=== PATIENT | male | born 1950 | race American Indian/Alaskan Native ===

== ENCOUNTER 2022-04-18 10:19 | Emergency (ER) | payer MEDICARE ==
[2022-04-18 10:27] VITALS: BP 130/88
[2022-04-18] MEDS ORDERED: KETOROLAC 10 MG TAB PO ONE (15:58)
[2022-04-18] MEDS ORDERED: ONDANSETRON 4 MG ODT TAB PO ONE (15:58)
[2022-04-18] MEDS ORDERED: oxyCODONE /ACETAMINOPHEN 5-325MG TAB PO ONE (15:58)
--- NOTE | 2022-04-18 16:06 | Emergency Department Report ---
ED Lower Extremity HPI - General Chief Complaint: Extremity Injury, Lower Stated Complaint: RT LEG PAIN Time Seen by Provider: 04/18/22 15:57 Source: patient Mode of arrival: Stretcher Limitations: Physical Limitation - History of Present Illness Initial Comments: 71-year-old male history of CVA, high cholesterol hypertension presents to the emergency department with atraumatic right knee pain. Patient reports woke up yesterday experiencing pain and swelling in his right knee. He denies fall or injury, pain is worse when he tries to walk hence he has been using a cane to ambulate. Pain is worse with ambulating, bending extension of his leg, improves with rest. Patient has not taken any medications for pain. He denies any recent travel, he denies numbness tingling of the leg, no chest pain, no shortness of breath, no headache dizziness weakness or any other associated symptoms. Injury: Knee: Right Improves With: immobilization Worsens With: weight bearing, movement, palpation Associated Symptoms: swelling, unable to bear weight. denies: snap/pop sensation, numbness, tingling, ambulatory - Related Data Previous Rx's Medication Instructions Recorded Last Taken Type Lidocaine 1 each TP DAILY #12 patch 04/18/22 Unknown Rx traMADoL [Ultram 50 MG tab] 50 mg PO Q6HR PRN #12 tablet 04/18/22 Unknown Rx Allergies Allergy/AdvReac Type Severity Reaction Status Date / Time No Known Allergies Allergy Verified 04/18/22 10:26 ED Review of Systems ROS: Stated complaint: RT LEG PAIN Other details as noted in HPI Constitutional: denies: chills, fever ENT: denies: ear pain, throat pain Respiratory: denies: see HPI, cough, orthopnea, shortness of breath, wheezing Cardiovascular: denies: chest pain, palpitations, dyspnea on exertion Musculoskeletal: denies: back pain, joint swelling, arthralgia, myalgia Skin: denies: rash, lesions, change in color, pruritus Neurological: denies: headache, weakness, numbness ED Past Medical Hx - Past Medical History Previous Medical History?: Yes Hx Hypertension: Yes Hx CVA: Yes Hx Arthritis: Yes - Medications Home Medications: Home Medications Medication Instructions Recorded Confirmed Last Taken Type Lidocaine 1 each TP DAILY #12 patch 04/18/22 Unknown Rx traMADoL [Ultram 50 MG tab] 50 mg PO Q6HR PRN #12 tablet 04/18/22 Unknown Rx ED Physical Exam - General Limitations: Physical Limitation General appearance: alert, in no apparent distress - Head Head exam: Present: atraumatic - Eye Eye exam: Present: normal appearance Pupils: Present: normal accommodation - ENT ENT exam: Present: normal exam - Respiratory Respiratory exam: Present: normal lung sounds bilaterally. Absent: respiratory distress - Cardiovascular Cardiovascular Exam: Present: regular rate, normal heart sounds - GI/Abdominal GI/Abdominal exam: Present: soft. Absent: distended, tenderness - Extremities Exam Extremities exam: Present: tenderness, joint swelling. Absent: normal inspection, full ROM, normal capillary refill, pedal edema, calf tenderness - Back Exam Back exam: Present: normal inspection, full ROM. Absent: tenderness, CVA tenderness (R), CVA tenderness (L), muscle spasm, paraspinal tenderness - Neurological Exam Neurological exam: Present: alert, oriented X3 - Psychiatric Psychiatric exam: Present: normal affect, normal mood - Skin Skin exam: Present: warm, dry, intact, normal color ED Course Vital Signs 04/18/22 10:23 Temperature 97.6 F Pulse Rate 60 Respiratory 14 Rate Blood Pressure 130/88 [Left] O2 Sat by Pulse 98 Oximetry ED Lower Extremity MDM - Medical Decision Making 71-year-old male history of CVA hypertension presents to the emergency department with atraumatic right knee pain. Patient reports woke up yesterday experiencing pain and swelling in his right knee. He denies fall or injury, pain is worse when he tries to walk hence he has been using a cane to ambulate. Pain is worse with ambulating, bending extension of his leg, improves with rest. Patient has not taken any medications for pain. He denies any recent travel, he denies numbness tingling of the leg, no chest pain, no shortness of breath, no headache dizziness weakness or any other associated symptoms. No indication for DVT at this time, patient is already taking "unknown blood pain is". No recent travel or immobilization or recent surgery, Patient appears to have Mills's cyst, his knee pain is atraumatic, no obvious swelling deformity, sensation pulse cap refill intact, no Homans' sign, symptoms improved with pain management and immobolization of the extremity. Discharge home with orthopedic referral, pain management and follow-up. Discussed all this with patient including outpatient management with pt. Prescription for tramadol and topical Salonpas Critical care attestation.: If time is entered above; I have spent that time in minutes in the direct care of this critically ill patient, excluding procedure time. ED Disposition Clinical Impression: Right knee pain, Cyst, Mills's knee Disposition: HOME / SELF CARE / HOMELESS Is pt being admited?: No Does the pt Need Aspirin: No Condition: Stable Instructions: Acute Knee Pain, Adult, Acute Knee Pain, Adult, [id number] Prescriptions: Lidocaine 1 each TP DAILY #12 patch traMADoL [Ultram 50 MG tab] 50 mg PO Q6HR PRN #12 tablet PRN Reason: Pain Referrals: [facility] [Provider Group] - 3-5 Days
== END 2022-04-18 16:53 | disposition home or self-care (01) ==
LOC: ED 10:19
DX: M25.561 Pain in right knee (principal); M71.21 Synovial cyst of popliteal space [Baker], right knee; I10 Essential (primary) hypertension; M19.90 Unspecified osteoarthritis, unspecified site; Z86.73 Personal history of transient ischemic attack (TIA), and cerebral infarction without residual deficits
CPT/HCPCS: 99283; J3490; Q0162